=== PATIENT | female | born 1985 | race Caucasian/White ===

== ENCOUNTER 2018-10-02 12:42 | Emergency (ER) | payer MEDICAID ==
[~2018-10-02] VITALS: Ht 175.3 cm; Wt 89.0 kg
--- NOTE | 2018-10-02 13:04 | NUR ---
PT IN BED. US IN ROOM AT THIS TIME.
[2018-10-02 13:10] LABS: BASOPHILS # (AUTO) 0.09 x10^3/uL (0-0.1); BASOPHILS % (AUTO) 1 % (0-1); EOSINOPHILS # (AUTO) 0.16 x10^3/uL (0-0.4); EOSINOPHILS % (AUTO) 2 % (1-7); LYMPHOCYTES # (AUTO) 2.14 x10^3/uL (1-3.4); LYMPHOCYTES % (AUTO) 26 % (22-44); MD NO; MEAN CORPUSCULAR HEMOGLOBIN 32.1 pg (27.0-34.8); MEAN CORPUSCULAR HGB CONC 33.9 g/dL (32.4-35.8); MEAN CORPUSCULAR VOLUME 94.5 fL (80-100); MEAN PLATELET VOLUME 8.9 fL (7.4-10.4); MONOCYTES # (AUTO) 0.52 x10^3/uL (0.2-0.8); MONOCYTES % (AUTO) 6 % (2-9); NEUTROPHILS # (AUTO) 5.41 x10^3/uL (1.8-6.8); NEUTROPHILS % (AUTO) 65 % (42-75); PLATELET COUNT 255 x10^3/uL (130-400); RED BLOOD COUNT 5.13 x10^6/uL (3.82-5.3); RED CELL DISTRIBUTION WIDTH 12.9 % (9.6-15.2)
[2018-10-02 13:22] LABS: ALANINE AMINOTRANSFERASE 34 U/L (12-78); ANION GAP 8 mmol/L (5-15); CALCIUM 8.9 mg/dL (8.5-10.1); CHLORIDE 105 mmol/L (98-107); CREATININE 0.76 mg/dL (0.55-1.02)
[2018-10-02 13:25] LABS: ALKALINE PHOSPHATASE 100 U/L (45-117); BILIRUBIN,TOTAL 0.3 mg/dL (0.2-1.0); TOTAL PROTEIN 7.8 g/dL (6.4-8.2)
[2018-10-02 14:10] LABS: TROPONIN I < 0.015 ng/mL (0.000-0.045)
[2018-10-02] MEDS ORDERED: KETOROLAC 30 MG/1 ML ONE (14:28)
[2018-10-02] MEDS ORDERED: KETOROLAC 60 MG/2 ML IM ONE (14:30)
--- NOTE | 2018-10-02 14:31 | NUR ---
Toradol admin. No other needs at this time.
[2018-10-02 14:36] VITALS: BP 118/74
== END 2018-10-02 15:31 | disposition home or self-care (01) ==
LOC: ED 13:39
DX: M94.0 Chondrocostal junction syndrome [Tietze] (principal); R07.2 Precordial pain
CPT/HCPCS: 36415; 71045; 76700; 80053; 83690; 84484; 85025; 93005; 96372; 99284; J1885

== ENCOUNTER 2019-10-01 09:00 | Inpatient (IN) | payer MEDICAID ==
[~2019-10-01] VITALS: Ht 175.3 cm; Wt 84.8 kg
[2019-10-01] MEDS ORDERED: ONDANSETRON 2MG/ML, 2ML ONE (09:23)
[2019-10-01] MEDS ORDERED: MORPHINE SULFATE 4 MG/ML, 1ML ONE ×3 (09:24→12:36)
[2019-10-01] MEDS ORDERED: ONDANSETRON 2MG/ML, 2ML IVPush ONE (09:30)
[2019-10-01] MEDS ORDERED: SODIUM CHLORIDE 0.9% 1,000ML IVBOLUS ONE (09:30)
[2019-10-01] MEDS ORDERED: SODIUM CHLORIDE FLUSH 10ML SYR IVF ONE (09:30)
[2019-10-01] MEDS: MORPHINE SULFATE 4 MG/ML, 1ML IVPush PRN ×4 (09:31→18:11)
[2019-10-01 09:48] LABS: MEAN CORPUSCULAR HEMOGLOBIN 32.4 pg (27.0-34.8); MEAN CORPUSCULAR HGB CONC 33.9 g/dL (32.4-35.8); MEAN CORPUSCULAR VOLUME 95.5 fL (80-100); MEAN PLATELET VOLUME 9.3 fL (7.4-10.4); PLATELET COUNT 205 x10^3/uL (130-400); RED BLOOD COUNT 4.93 x10^6/uL (3.82-5.3); RED CELL DISTRIBUTION WIDTH 12.3 % (9.6-15.2)
[2019-10-01 09:51] LABS: ALANINE AMINOTRANSFERASE 20 U/L (12-78); ALBUMIN 3.3 g/dL (3.4-5.0); ANION GAP 11 mmol/L (5-15); CALCIUM 8.3 mg/dL (8.5-10.1); CHLORIDE 105 mmol/L (98-107); CREATININE 0.62 mg/dL (0.55-1.02)
[2019-10-01 09:55] LABS: ALKALINE PHOSPHATASE 86 U/L (45-117); BILIRUBIN,TOTAL 0.9 mg/dL (0.2-1.0)
[2019-10-01 10:02] LABS: MICROSCOPIC INDICATED
[2019-10-01 10:05] LABS: CULTURE INDICATED? YES
--- NOTE | 2019-10-01 10:26 | NUR ---
REMEDICATED FOR 5/10 FLANK PAIN. IV BOLUS CONTINUES TO INFUSE
[2019-10-01 10:36] LABS: BASOPHILS # (AUTO) 0.02 x10^3/uL (0-0.1); BASOPHILS % (AUTO) 0 % (0-1); EOSINOPHILS # (AUTO) 0.12 x10^3/uL (0-0.4); EOSINOPHILS % (AUTO) 1 % (1-7); LYMPHOCYTES % (AUTO) 8 % (22-44); MD SCAN; MONOCYTES # (AUTO) 0.86 x10^3/uL (0.2-0.8); MONOCYTES % (AUTO) 6 % (2-9); NEUTROPHILS % (AUTO) 85 % (42-75)
[2019-10-01] MEDS ORDERED: SODIUM CHLORIDE 0.9% 1,000 ML IV ONE (11:15)
[2019-10-01] MEDS ORDERED: CEFTRIAXONE PMX 1GM/50ML 50 ML IV ONE (11:30)
[2019-10-01] MEDS ORDERED: SODIUM CHLORIDE FLUSH 10ML SYR IVF PRN (11:30)
[2019-10-01] MEDS ORDERED: CEFTRIAXONE PMX 2GM/50ML 50 ML ONE (11:50)
[2019-10-01] MEDS: CEFTRIAXONE PMX 2GM/50ML 50 ML IV SCH (11:53)
[2019-10-01] MEDS ORDERED: ONDANSETRON ODT 4 MG PO PRN (12:00)
[2019-10-01] MEDS ORDERED: ONDANSETRON 2MG/ML, 2ML IVPush PRN (12:00)
--- NOTE | 2019-10-01 12:03 | NUR ---
REPORT TO RAO MONET
--- NOTE | 2019-10-01 12:10 | NUR ---
ULTRASOUND AT BEDSIDE.
[2019-10-01] MEDS ORDERED: KETOROLAC 30 MG/1 ML ONE (12:25)
[2019-10-01] MEDS: KETOROLAC 30 MG/1 ML IV PRN ×2 (12:26→14:39)
--- NOTE | 2019-10-01 12:29 | NUR ---
MEDICATED PER NOV FOR RETURNING FLANK PAIN 07/05
--- NOTE | 2019-10-01 12:42 | NUR ---
RECEIVED ORDER FOR ADDITIONAL DOSE OF MORPHINE FROM ER PT TO FLOOR WITH TECH
[2019-10-01] MEDS: NICOTINE 14MG/24 HR PATCH.TD24 TD SCH (13:00)
[2019-10-01] MEDS ORDERED: POTASSIUM CHLORIDE 20 MEQ TAB.ER.PRT PO ONE (13:00)
[2019-10-01] MEDS: SODIUM CHLORIDE 0.9% 1,000 ML IV SCH ×2 (14:36→23:54)
[2019-10-01] MEDS: ENOXAPARIN 40 MG/0.4 ML SQ SCH (14:54)
[2019-10-01] MEDS: ACETAMINOPHEN 325 MG TABLET PO PRN (14:55)
[2019-10-01 20:00] VITALS: BP 119/72
[2019-10-02] MEDS: KETOROLAC 30 MG/1 ML IV PRN ×3 (03:10→18:35)
[2019-10-02 03:13] VITALS: BP 123/83
[2019-10-02 05:29] LABS: BASOPHILS # (AUTO) 0.04 x10^3/uL (0-0.1); BASOPHILS % (AUTO) 1 % (0-1); EOSINOPHILS # (AUTO) 0.11 x10^3/uL (0-0.4); EOSINOPHILS % (AUTO) 1 % (1-7); LYMPHOCYTES # (AUTO) 0.96 x10^3/uL (1-3.4); LYMPHOCYTES % (AUTO) 12 % (22-44); MD NO; MEAN CORPUSCULAR HEMOGLOBIN 32.1 pg (27.0-34.8); MEAN CORPUSCULAR HGB CONC 33.5 g/dL (32.4-35.8); MEAN CORPUSCULAR VOLUME 95.9 fL (80-100); MEAN PLATELET VOLUME 9.1 fL (7.4-10.4); MONOCYTES # (AUTO) 0.74 x10^3/uL (0.2-0.8); MONOCYTES % (AUTO) 9 % (2-9); NEUTROPHILS # (AUTO) 6.48 x10^3/uL (1.8-6.8); NEUTROPHILS % (AUTO) 78 % (42-75); PLATELET COUNT 193 x10^3/uL (130-400); RED BLOOD COUNT 4.44 x10^6/uL (3.82-5.3); RED CELL DISTRIBUTION WIDTH 12.5 % (9.6-15.2)
[2019-10-02 06:14] LABS: ANION GAP 4 mmol/L (5-15); CALCIUM 8.2 mg/dL (8.5-10.1); CHLORIDE 111 mmol/L (98-107); CREATININE 0.47 mg/dL (0.55-1.02)
[2019-10-02 10:42] VITALS: BP 113/75
[2019-10-02] MEDS: NICOTINE 14MG/24 HR PATCH.TD24 TD SCH (11:43)
[2019-10-02] MEDS: ENOXAPARIN 40 MG/0.4 ML SQ SCH (11:43)
[2019-10-02] MEDS: ACETAMINOPHEN 325 MG TABLET PO PRN (11:47)
[2019-10-02 14:38] VITALS: BP 121/82
[2019-10-02] MEDS: CEFTRIAXONE PMX 2GM/50ML 50 ML IV SCH (15:41)
[2019-10-02] MEDS: PHENAZOPYRIDINE 200 MG TABLET PO PRN (18:40)
[2019-10-02 19:21] VITALS: BP 121/82
[2019-10-02] MEDS: SODIUM CHLORIDE 0.9% 1,000 ML IV SCH (19:37)
[2019-10-03] MEDS: PHENAZOPYRIDINE 200 MG TABLET PO PRN (02:12)
[2019-10-03 03:53] VITALS: BP 131/88
[2019-10-03 06:13] LABS: BASOPHILS # (AUTO) 0.03 x10^3/uL (0-0.1); BASOPHILS % (AUTO) 0 % (0-1); EOSINOPHILS # (AUTO) 0.14 x10^3/uL (0-0.4); EOSINOPHILS % (AUTO) 2 % (1-7); LYMPHOCYTES # (AUTO) 0.95 x10^3/uL (1-3.4); LYMPHOCYTES % (AUTO) 14 % (22-44); MD NO; MEAN CORPUSCULAR HEMOGLOBIN 32.4 pg (27.0-34.8); MEAN CORPUSCULAR VOLUME 95.3 fL (80-100); MEAN PLATELET VOLUME 9.4 fL (7.4-10.4); MONOCYTES # (AUTO) 0.48 x10^3/uL (0.2-0.8); MONOCYTES % (AUTO) 7 % (2-9); NEUTROPHILS # (AUTO) 5.37 x10^3/uL (1.8-6.8); NEUTROPHILS % (AUTO) 77 % (42-75); PLATELET COUNT 203 x10^3/uL (130-400); RED BLOOD COUNT 4.46 x10^6/uL (3.82-5.3); RED CELL DISTRIBUTION WIDTH 12.4 % (9.6-15.2)
[2019-10-03 06:24] LABS: ANION GAP 8 mmol/L (5-15); CALCIUM 8.1 mg/dL (8.5-10.1); CHLORIDE 109 mmol/L (98-107)
[2019-10-03 06:26] LABS: CREATININE 0.53 mg/dL (0.55-1.02)
[2019-10-03 06:58] VITALS: BP 144/89
[2019-10-03] MEDS ORDERED: POTASSIUM CHLORIDE 20 MEQ TAB.ER.PRT PO ONE (11:00)
[2019-10-03] MEDS: ENOXAPARIN 40 MG/0.4 ML SQ SCH (11:40)
[2019-10-03 12:05] VITALS: BP 140/90
[2019-10-03] MEDS: NICOTINE 14MG/24 HR PATCH.TD24 TD SCH (12:47)
[2019-10-03] MEDS: CEFTRIAXONE PMX 2GM/50ML 50 ML IV SCH (15:35)
[2019-10-03] MEDS: SODIUM CHLORIDE 0.9% 1,000 ML IV SCH (15:36)
[2019-10-03 21:00] VITALS: BP 136/82
[2019-10-04 02:00] VITALS: BP 123/81
[2019-10-04] MEDS: SODIUM CHLORIDE 0.9% 1,000 ML IV SCH (04:39)
[2019-10-04 06:51] LABS: BASOPHILS # (AUTO) 0.04 x10^3/uL (0-0.1); BASOPHILS % (AUTO) 1 % (0-1); EOSINOPHILS # (AUTO) 0.24 x10^3/uL (0-0.4); EOSINOPHILS % (AUTO) 4 % (1-7); LYMPHOCYTES # (AUTO) 1.55 x10^3/uL (1-3.4); LYMPHOCYTES % (AUTO) 28 % (22-44); MD NO; MEAN CORPUSCULAR HEMOGLOBIN 32.3 pg (27.0-34.8); MEAN CORPUSCULAR HGB CONC 33.5 g/dL (32.4-35.8); MEAN CORPUSCULAR VOLUME 96.3 fL (80-100); MONOCYTES # (AUTO) 0.68 x10^3/uL (0.2-0.8); MONOCYTES % (AUTO) 12 % (2-9); NEUTROPHILS # (AUTO) 3.02 x10^3/uL (1.8-6.8); NEUTROPHILS % (AUTO) 55 % (42-75); PLATELET COUNT 243 x10^3/uL (130-400); RED BLOOD COUNT 4.51 x10^6/uL (3.82-5.3); RED CELL DISTRIBUTION WIDTH 12.2 % (9.6-15.2)
[2019-10-04 08:28] VITALS: BP 113/73
[2019-10-04 08:50] LABS: ANION GAP 7 mmol/L (5-15); CALCIUM 8.8 mg/dL (8.5-10.1); CHLORIDE 110 mmol/L (98-107)
[2019-10-04] MEDS ORDERED: POTASSIUM CHLORIDE 20 MEQ TAB.ER.PRT PO ONE (11:30)
[2019-10-04] MEDS: ENOXAPARIN 40 MG/0.4 ML SQ SCH (13:00)
[2019-10-04] MEDS: NICOTINE 14MG/24 HR PATCH.TD24 TD SCH (13:00)
[2019-10-04] MEDS ORDERED: ACET325T26 PO (13:18)
[2019-10-04] MEDS ORDERED: CEFD300C37 PO (13:18)
[2019-10-04 13:25] VITALS: BP 137/90
[2019-10-04] MEDS: CEFTRIAXONE PMX 2GM/50ML 50 ML IV SCH (14:00)
== END 2019-10-04 15:31 | disposition home or self-care (01) | DRG 872 ==
LOC: ED 10:49 → EDIP 11:15 → 3N 12:49 → DCLOUNGE 10-04 15:26
PROVIDERS: ADMIT Internal Medicine; ATTEND Internal Medicine
PROC: 0T9B70Z Drainage of Bladder with Drainage Device, Via Natural or Artificial Opening (ICD-10-PCS; principal; 2019-10-01)
DX: A41.51 Sepsis due to Escherichia coli [E. coli] (principal); N10 Acute pyelonephritis; E87.6 Hypokalemia; F17.200 Nicotine dependence, unspecified, uncomplicated; I10 Essential (primary) hypertension; N20.0 Calculus of kidney; N28.1 Cyst of kidney, acquired
CPT/HCPCS: 36415; 74177; 76770; 80048; 80053; 81001; 83605; 83690; 83735; 84703; 85025; 87040; 87077; 87086; 87186; 96361; 96374; 96375; 96376; G0378; J0696; J1650; J1885; J2405; J2270; J7030

== ENCOUNTER 2021-02-14 14:05 | Inpatient (IN) | payer MEDICAID ==
[~2021-02-14] VITALS: Ht 175.3 cm; Wt 93.5 kg
[~2021-02-14 14:05] MED LIST: ACET325T26 PO; CEFD300C37 PO
--- NOTE | 2021-02-14 14:33 | NUR ---
BREAK RN NOTE: PT ARRIVES TO ED VIA AMBULANCE WITH C/O N/V, SORE THROAT AND COUGH FOR LAST 2 DAYS. PT NOTES WHILE VOMITING TODAY, SHE SUDDENLY EXPERIENCED RIGHT UPPER ABD PAIN, SHARP IN NATURE. PT A&O, RESPS EVEN AND UNLABORED. BP AND SPO2 MONITORS IN PLACE. PT INSTRUCTED TO PROVIDE CLEAN CATCH UA, SUPPLIES AT BEDSIDE.
[2021-02-14 14:49] LABS: BASOPHILS % (AUTO) 1 % (0-1); EOSINOPHILS % (AUTO) 2 % (1-7); LYMPHOCYTES % (AUTO) 14 % (22-44); MEAN CORPUSCULAR HEMOGLOBIN 31.4 pg (27.0-34.8); MEAN CORPUSCULAR HGB CONC 34.2 g/dL (32.4-35.8); MEAN PLATELET VOLUME 8.9 fL (7.4-10.4); MONOCYTES % (AUTO) 7 % (2-9); NEUTROPHILS % (AUTO) 77 % (42-75); PLATELET COUNT 258 x10^3/uL (130-400); RED BLOOD COUNT 4.91 x10^6/uL (3.82-5.3); RED CELL DISTRIBUTION WIDTH 13.4 % (9.6-15.2)
[2021-02-14] MEDS ORDERED: HYDROmorphone 1 MG/ML, 1ML INJ ONE ×2 (14:55→17:00)
[2021-02-14 14:56] LABS: MD NO
[2021-02-14] MEDS ORDERED: HYDROmorphone 1 MG/ML, 1ML INJ IV ONE ×2 (15:00→17:00)
[2021-02-14] MEDS ORDERED: SODIUM CHLORIDE 0.9% 1,000ML IVBOLUS ONE (15:00)
[2021-02-14] MEDS ORDERED: ONDANSETRON 2MG/ML, 2ML IVPush ONE (15:00)
[2021-02-14 15:03] LABS: ALBUMIN 3.9 g/dL (3.4-5.0); ANION GAP 10 mmol/L (5-15); CALCIUM 9.3 mg/dL (8.5-10.1); CHLORIDE 108 mmol/L (98-107)
[2021-02-14 15:08] LABS: ALANINE AMINOTRANSFERASE 18 U/L (12-78); ALKALINE PHOSPHATASE 85 U/L (45-117); BILIRUBIN,TOTAL 0.5 mg/dL (0.2-1.0); TOTAL PROTEIN 7.8 g/dL (6.4-8.2)
--- NOTE | 2021-02-14 15:09 | NUR ---
ULTRASOUND AT BEDSIDE. MEDICATED NOTED ON NOV FOR PAIN WITH IV BOLUS INFUSING, STARTED BY JOB MONET
[2021-02-14 15:14] LABS: MICROSCOPIC AUTO
--- NOTE | 2021-02-14 15:28 | NUR ---
PT STATES PAIN MARKEDLY IMPROVED SINCE MEDICATED, THAT RIGHT SIDE FEELS HOT. AWAITING DISPO
[2021-02-14] MEDS ORDERED: SODIUM CHLORIDE FLUSH 10ML SYR IVF ONE (15:30)
[2021-02-14] MEDS ORDERED: KETOROLAC 30 MG/1 ML IVPush ONE (17:00)
[2021-02-14] MEDS ORDERED: KETOROLAC 30 MG/1 ML ONE (17:00)
--- NOTE | 2021-02-14 17:06 | NUR ---
MEDICATED NOTED FOR RETURNING RIGHT FLANK PAIN 03/[address]
[2021-02-14] MEDS ORDERED: CEFTRIAXONE 1,000 MG in DEXTROSE 5% 50 ML IVPB ONE (18:00)
--- NOTE | 2021-02-14 18:42 | NUR ---
REPORT TO CHUN HERNANDEZ OR WHO WILL COME GET PT.
[2021-02-14] MEDS ORDERED: ONDANSETRON 2MG/ML, 2ML IVPush PRN ×2 (19:00→20:00)
[2021-02-14] MEDS ORDERED: morphine SULFATE 10 MG/ML, 1ML IV PRN (19:00)
--- NOTE | 2021-02-14 19:00 | NUR ---
REPORT RECIEVED FROM TIERNEY SCHULTZ. PT RESTING IN BED, AWAITING OR TO PICK HER UP
[2021-02-14] MEDS ORDERED: ONDANSETRON 2MG/ML, 2ML ONE ×2 (19:31→20:26)
[2021-02-14] MEDS ORDERED: MORPHINE SULFATE 4 MG/ML, 1ML ONE (19:31)
[2021-02-14] MEDS ORDERED: MIDAZOLAM 1 MG/ML, 2ML ONE (19:52)
[2021-02-14] MEDS ORDERED: FENTANYL PF 250 MCG/5ML ONE (19:56)
[2021-02-14] MEDS ORDERED: MEPERIDINE/PF 25MG/0.5ML IVPush PRN (20:00)
[2021-02-14] MEDS ORDERED: PROMETHAZINE 25 MG/ML, 1ML IVPush PRN (20:00)
[2021-02-14] MEDS ORDERED: DIPHENHYDRAMINE 50 MG/ML, 1ML IVPush PRN (20:00)
[2021-02-14] MEDS ORDERED: FENTANYL PF 100 MCG/2ML IV PRN (20:00)
[2021-02-14] MEDS ORDERED: DIAZEPAM 5 MG/ML, 2ML IVPush PRN (20:00)
[2021-02-14] MEDS ORDERED: LABETALOL 5MG/ML, 20ML IV PRN (20:00)
[2021-02-14] MEDS ORDERED: ACETAMINOPHEN 325 MG TABLET PO PRN (20:00)
[2021-02-14] MEDS ORDERED: hydrALAzine 20 MG/ML, 1ML IV PRN ×3 (20:00→22:30)
[2021-02-14] MEDS ORDERED: HYDROmorphone 1 MG/ML, 1ML INJ IVPush PRN (20:00)
[2021-02-14] MEDS ORDERED: OXYcodone 5 MG/5 ML ORAL.SOL UDC PO PRN (20:00)
[2021-02-14] MEDS ORDERED: OMNIPAQUE 350 MG/ML, 50 ML BOTTLE ONE (20:01)
[2021-02-14] MEDS ORDERED: LIDOCAINE-MPF 2% ,5ML ONE (20:26)
[2021-02-14] MEDS ORDERED: PROPOFOL 10 MG/ML, 20ML ONE (20:26)
[2021-02-14] MEDS ORDERED: OMNIPAQUE 350 MG/ML, 50 ML BOTTLE IV ONE (20:41)
[2021-02-14] MEDS ORDERED: OXYcodone 5 MG/5 ML ORAL.SOL UDC ONE (20:48)
[2021-02-14] MEDS ORDERED: FENTANYL PF 100 MCG/2ML ONE (20:48)
[2021-02-14 21:49] VITALS: BP 155/112
[2021-02-15] MEDS ORDERED: LABETALOL 5MG/ML, 20ML IVPush PRN
[2021-02-15] MEDS: HYDROcodone/APAP 5/325 TABLET PO PRN ×3 (00:34→09:18)
[2021-02-15 00:42] VITALS: BP 148/86
[2021-02-15] MEDS ORDERED: POTASSIUM CHLORIDE 20 MEQ TAB.ER.PRT PO ONE (02:30)
[2021-02-15 03:45] VITALS: BP 132/87
[2021-02-15 06:16] LABS: BASOPHILS % (AUTO) 1 % (0-1); EOSINOPHILS % (AUTO) 2 % (1-7); LYMPHOCYTES % (AUTO) 18 % (22-44); MEAN CORPUSCULAR HEMOGLOBIN 31.6 pg (27.0-34.8); MEAN CORPUSCULAR HGB CONC 34.5 g/dL (32.4-35.8); MEAN PLATELET VOLUME 9.1 fL (7.4-10.4); MONOCYTES % (AUTO) 8 % (2-9); NEUTROPHILS % (AUTO) 72 % (42-75); PLATELET COUNT 207 x10^3/uL (130-400); RED BLOOD COUNT 4.42 x10^6/uL (3.82-5.3); RED CELL DISTRIBUTION WIDTH 13.7 % (9.6-15.2)
[2021-02-15 06:19] LABS: MD NO
[2021-02-15 06:22] LABS: ANION GAP 6 mmol/L (5-15); CALCIUM 8.6 mg/dL (8.5-10.1); CHLORIDE 106 mmol/L (98-107); CREATININE 0.54 mg/dL (0.55-1.02)
[2021-02-15 07:48] VITALS: BP 127/85
[2021-02-15] MEDS ORDERED: SENNA/DOCUSATE TABLET PO SCH (09:00)
[2021-02-15] MEDS ORDERED: CEFTRIAXONE 1,000 MG in DEXTROSE 5% 50 ML IVPB SCH (17:30)
== END 2021-02-15 11:20 | disposition left against medical advice (07) | DRG 661 ==
LOC: ED 15:27 → EDIP 18:06 → 4NE 21:40
PROVIDERS: ADMIT Family Medicine; ATTEND Hospitalist
PROC: BT1D1ZZ Fluoroscopy of Right Kidney, Ureter and Bladder using Low Osmolar Contrast (ICD-10-PCS; 2021-02-14)
PROC: 0T768DZ Dilation of Right Ureter with Intraluminal Device, Via Natural or Artificial Opening Endoscopic (ICD-10-PCS; principal; 2021-02-14 19:00)
DX: N13.6 Pyonephrosis (principal); E66.9 Obesity, unspecified; E87.6 Hypokalemia; F12.10 Cannabis abuse, uncomplicated; Z20.822 Contact with and (suspected) exposure to COVID-19; F17.200 Nicotine dependence, unspecified, uncomplicated; Z68.30 Body mass index [BMI] 30.0-30.9, adult; Z87.442 Personal history of urinary calculi
CPT/HCPCS: 36415; 96361; 96365; 99291; J3490; 74176; 76700; 80048; 80053; 81001; 83690; 84703; 85025; 87077; 87086; 87186; 87635; G0378; J0696; J1170; J1885; J2250; J2405; J2704; J3010; Q9967; J0360; J7030